=== PATIENT | female | born 1965 | race Caucasian/White ===

== ENCOUNTER 2022-08-07 23:14 | Inpatient (IN) | payer MEDICARE ==
[~2022-08-07] VITALS: Ht 170.2 cm; Wt 63.5 kg
[2022-08-07] MEDS ORDERED: FOLI1TAB94 PO (23:41)
[2022-08-07] MEDS ORDERED: LIDO30AD10 TD (23:41)
[2022-08-07] MEDS ORDERED: FLUC200T PO (23:41)
[2022-08-07] MEDS ORDERED: SUCR1ORA PO (23:41)
[2022-08-07] MEDS ORDERED: HYDR-500 PO (23:41)
[2022-08-07] MEDS ORDERED: ACET-2154 PO (23:41)
[2022-08-07] MEDS ORDERED: THIA100T74 PO (23:41)
[2022-08-07] MEDS ORDERED: MULT-213 PO (23:41)
[2022-08-07] MEDS ORDERED: PROC10TA13 PO (23:41)
[2022-08-07] MEDS ORDERED: MIRT-93 PO (23:41)
[2022-08-07] MEDS ORDERED: ONDA4TAB11 PO (23:41)
[2022-08-07] MEDS ORDERED: NICO-671 TD (23:41)
[2022-08-07] MEDS ORDERED: PANT40TA49 PO (23:41)
--- NOTE | 2022-08-07 23:59 | NUR ---
Patient placed in room 3 at this time.
--- NOTE | 2022-08-08 00:27 | NUR ---
Patient placed into room #3, informed of plan of care, placed on monitor. Patient is nonverbal at this time. No s/s of any distress noted at this time. will continue to monitor.
--- NOTE | 2022-08-08 00:39 | NUR ---
Patient talking now, alert oriented x3, pale in color, no respiratory distress, abd distended, firm with positive bowel sounds, BLE purplish discoloration with pitting edema to bilateral feet, BUE with scattered brusing noted. Patient given nausea bag, positioned for comfort, will continue to monitor.
[2022-08-08 01:32] LABS: HEMATOCRIT 27.7 % (31.2-41.9); MEAN CORPUSCULAR HEMOGLOBIN 34.5 uug (24.7-32.8); MEAN CORPUSCULAR VOLUME 100.3 fL (75.5-95.3); PLATELET COUNT (AUTO) 154 K/uL (179-408)
[2022-08-08 01:45] LABS: CREATININE 0.6 mg/dL (0.6-1.3); POTASSIUM 3.1 mmol/L (3.5-5.1)
--- NOTE | 2022-08-08 02:14 | NUR ---
Patient continues to rest, lab was at beside, no voiced c/o at this time.
[2022-08-08 02:15] LABS: MAGNESIUM 1.9 mg/dL (1.8-2.4)
[2022-08-08] MEDS ORDERED: POTASSIUM BICARBONATE/CIT AC 25 MEQ TABLET.EFF PO ONE (02:15)
[2022-08-08] MEDS ORDERED: POTASSIUM BICARBONATE/CIT AC 25 MEQ TABLET.EFF ONE (02:20)
[2022-08-08 02:23] LABS: BAND % (MANUAL) 2 % (0-10); LYMPHOCYTES % (MANUAL) 18 % (20-40)
[2022-08-08 02:24] LABS: MONOCYTES % (MANUAL) 12 % (2-10); NEUTROPHILS % (MANUAL) 68 % (42-75)
[2022-08-08 03:02] LABS: IRON, SERUM 68 ug/dL (50-175)
[2022-08-08] MEDS ORDERED: IOHEXOL 300MG/ML 100 ML INFUS..BTL ONE (03:26)
[2022-08-08] MEDS ORDERED: IV NORMAL SALINE 250 ML IV ONE (03:27)
[2022-08-08] MEDS ORDERED: SWABABLE VALVE TRANSFER SET EA MC ONE (03:27)
[2022-08-08] MEDS ORDERED: PROCHLORPERAZINE EDISYLATE 10 MG/2 ML VIAL IV ONE (03:30)
[2022-08-08] MEDS ORDERED: PROCHLORPERAZINE EDISYLATE 10 MG/2 ML VIAL ONE (03:34)
[2022-08-08] MEDS ORDERED: LIDOCAINE 2% (GLYDO= UROJET) 10 ML JELLY MM ONE (04:15)
[2022-08-08] MEDS ORDERED: MAGNESIUM SULFATE/D5W 100 ML IV SCH (04:15)
[2022-08-08] MEDS ORDERED: IV NS 1000 ML 1,000 ML IV ONE (04:15)
--- NOTE | 2022-08-08 04:21 | NUR ---
Patient has been to CT, returned awaiting MD review. #24g established in right thumb, medicated as per order for nausea.
--- NOTE | 2022-08-08 04:59 | NUR ---
#18fr NG tube inserted to right nare, approx. 500cc of thick tanish color secretions, repositioned for comfort, IVF started as per order.
--- NOTE | 2022-08-08 05:01 | NUR ---
Dr. Nunez on panel call with Adarsh Hurtado NP. Pending admission.
[2022-08-08] MEDS ORDERED: REMEDY ESSENTIAL ZINC PASTE 113 GM TP PRN (05:15)
[2022-08-08] MEDS ORDERED: ACETAMINOPHEN 325 MG TABLET PO PRN (05:15)
[2022-08-08] MEDS ORDERED: MAGNESIUM HYDROXIDE 30 ML LIQUID UDC PO PRN (05:15)
[2022-08-08] MEDS ORDERED: MAGNESIUM SULFATE/D5W 100 ML ONE (05:17)
--- NOTE | 2022-08-08 05:31 | NUR ---
patient aware she will be admitted to the hospital, belongings list completed.
--- NOTE | 2022-08-08 05:46 | NUR ---
Patient sleeping at this time, easy to arouse no change in primary assessment.
[2022-08-08] MEDS ORDERED: METOCLOPRAMIDE HCL 10 MG/2 ML VIAL IV ONE (06:00)
[2022-08-08] MEDS ORDERED: POTASSIUM CHLORIDE 50 ML ONE (06:13)
[2022-08-08] MEDS: POTASSIUM CHLORIDE 50 ML IV SCH ×4 (06:15→14:21)
[2022-08-08 06:32] LABS: HEMATOCRIT 24.5 % (31.2-41.9); MEAN CORPUSCULAR HEMOGLOBIN 34.3 uug (24.7-32.8); MEAN CORPUSCULAR VOLUME 100.3 fL (75.5-95.3); PLATELET COUNT (AUTO) 141 K/uL (179-408)
--- NOTE | 2022-08-08 06:33 | NUR ---
Report given to accepting nurse, patient remains stable for transport.
[2022-08-08 06:57] LABS: BILIRUBIN,TOTAL 0.7 mg/dL (0.2-1.0); CREATININE 0.5 mg/dL (0.6-1.3); MAGNESIUM 2.2 mg/dL (1.8-2.4); POTASSIUM 3.2 mmol/L (3.5-5.1); TOTAL PROTEIN, SERUM 4.8 g/dL (6.4-8.2)
[2022-08-08 07:01] LABS: THYROID STIMULATING HORMONE 1.636 mIU/mL (0.358-3.740)
[2022-08-08 07:30] VITALS: BP 96/61
--- NOTE | 2022-08-08 08:20 | NUR ---
received report from ryan charge nurse. pt is new admit from er. pt is on 5150 hold 72hrs hold in placed pt have a suicidal thought. 08/07 - 08/10. pt sleeping on bed. pale in color. in no acute distress. low intermittent suction in placed. pt is npo for now. SBO was seen on ct abdomen. sinus rhythm on the monitor.
--- NOTE | 2022-08-08 08:53 | NUR ---
[employer]IPPA consult requested for patient for homeless, substance abuse, and mental health resources. Patient is a 57 year old woman that was admitted to the hospital for abdominal pain and ileus. Patient is also on a 5150 for danger to self. Patient is alert and oriented X4 and presents with depressed mood and congruent affect. Patient states she does not have a primary contact and is currently living in her car that is parked in a parking lot. [employer]PA was unable to ascertain the location of the patient's car. Patient states she is currently not working and is receiving disability benefits. Patient states she has a history of alcohol abuse and PIPPA provided the patient with resources for [facility] [address] [facility] [address] ([phone]), [facility] [address] [facility] [address] ([phone]), and [facility] [address] [facility] [address] ([phone]). Patient appears unmotivated for treatment at this time. Patient denies a history of psychiatric diagnosis and states she is having suicidal ideation but does not have a plan. Patient denies homicidal ideation. [employer]PA provided the patient with the mental health resource for [facility] [address] [place] [address] ([phone]). [employer]PA will continue to follow up.
[2022-08-08] MEDS: CHOLECALCIFEROL 1,000 UNIT TABLET PO SCH (09:00)
[2022-08-08 09:03] VITALS: BP 98/64
--- NOTE | 2022-08-08 09:17 | NUR ---
Patient seen by Psychiatrist for evaluation, per doctor continue 1:1. Patient stated, "I feel like killing my self, I am think how to go about it". 1:1 at bedside at all time, encourage patient to express feels and thoughts with appropriate behavior. Emotional supprot provided. Fall and safety precautions implemented.
[2022-08-08 12:24] VITALS: BP 110/78
[2022-08-08] MEDS: IV D5/ 0.9% NACL 1,000 ML IV PRN ×2 (12:54→21:45)
[2022-08-08] MEDS ORDERED: DIATR MEGLU/DIATRIZOATE SODIUM 30 ML BOTTLE ONE (14:24)
--- NOTE | 2022-08-08 14:41 | NUR ---
Gastrografin administered. rad will come back in 20mins for xray bowel trough Addendum: 08/08/22 at 1443 by JOSH SARGENTREL RN intermittent suction clamp. will cont after the xray.
[2022-08-08 16:00] VITALS: BP 105/76
[2022-08-08 16:05] LABS: *BILIRUBIN,URIN NEGATIVE (NEGATIVE); *BLOOD, URINE 2+ (NEGATIVE); *CLARITY,URINE SLIGHTLY CLOUDY (CLEAR); *COLOR,URINE YELLOW (YELLOW); *KETONES,URINE TRACE (NEGATIVE); *UROBILINOGEN,URINE 0.2 E.U./dl (NORMAL); LEUKOCYTE ESTERASE ,URINE NEGATIVE (NEGATIVE); NITRITE, URINE POSITIVE (NEGATIVE); PH,URINE 5.5 (5.0-8.0); UGLUCOSE NEGATIVE (NEGATIVE)
[2022-08-08 16:42] LABS: BACTERIA,URINE MANY /HPF (NONE SEEN); WBC,URINE 0-3 /HPF (0-3)
[2022-08-08 17:02] LABS: SQUAMOUS EPITHELIAL CELL,UR MODERATE /HPF (NONE SEEN)
[2022-08-08] MEDS ORDERED: DEXAMETHASONE SOD PHOSPHATE 4 MG INJ ONE (17:15)
[2022-08-08] MEDS ORDERED: PROPOFOL 200 MG/20 ML BOTTLE ONE (17:15)
[2022-08-08] MEDS ORDERED: CEFAZOLIN 1 G VIAL ONE (17:15)
[2022-08-08] MEDS ORDERED: ONDANSETRON 4 MG/2 ML VIAL ONE (17:15)
--- NOTE | 2022-08-08 18:30 | NUR ---
pt aox3. still on 5150 hold. no acute distress noted. bedrest for now. on RA saturating 95-97. npo except med per md. sinus tachy on tele. ngt in placed patent, confirm positive placement, and flushed for low intermittent suction. pt was asked to stand up and sit on the edge of the bed but pt refused. pt was seen by hospitalist and psychiatrist. new orders was carried out. f/u with radiology for time of xray bowel follow trough. 1on1 sitter on placed pt is have suicidal thoughts. safety measure maintained. bed locked. all need attended. will endorsed to noc shift.
--- NOTE | 2022-08-08 19:30 | NUR ---
Received patient lying in bed. AAOx4. In no apparent distress. Denies any SOB. Complain of generalized pain. Will provide Morphine 1mg IV PRN per order. NGT to right nares intact and patent. Intermittnet suction off at this time as patient is having small bowel follow through procedure. Next x-ray to be done at 1999. 1:1 sitter on site. Continue to monitor.
[2022-08-08] MEDS: MORPHINE SULFATE 2 MG/1 ML DISP.SYRIN IV PRN (19:57)
[2022-08-08 20:00] VITALS: BP 105/72
[2022-08-08] MEDS: MIRTAZAPINE 15 MG TABLET PO SCH (20:32)
--- NOTE | 2022-08-08 22:10 | NUR ---
Radiology came for another abd. x-ray. Per X-ray tech Donald, will send last x-ray in for reading. Okay to start intermittent low suction now.
--- NOTE | 2022-08-08 22:30 | NUR ---
Telephone call from X-ray Tech Donald, stated that AIMEE Ugarte wanted to have another x-ray done at 0000. Stopped intermittent suctioning again at this time. Obtained 500ml of dark yellow secretions.
[2022-08-08] MEDS: LORAZEPAM 0.5 MG TABLET PO PRN (22:38)
[2022-08-09] VITALS: BP 121/83
[2022-08-09] MEDS: MORPHINE SULFATE 2 MG/1 ML DISP.SYRIN IV PRN ×5 (03:27→22:22)
--- NOTE | 2022-08-09 05:47 | NUR ---
1:1 sitter remains on site. No SI noted. Calm and cooperative. NGT remains intact and patent attached to intermittent slow suction. No N/V. Morphine 1mg via IV given for complain of pain and effective. Sinus tachy on tele with HR of 105/min. Needs attended to and met. Safety measure maintained.
[2022-08-09 06:00] VITALS: BP 116/82
[2022-08-09] MEDS: IV D5/ 0.9% NACL 1,000 ML IV PRN ×2 (06:19→14:20)
[2022-08-09 06:54] LABS: HEMATOCRIT 21.7 % (31.2-41.9); MEAN CORPUSCULAR HEMOGLOBIN 34.7 uug (24.7-32.8); MEAN CORPUSCULAR VOLUME 101.1 fL (75.5-95.3); PLATELET COUNT (AUTO) 181 K/uL (179-408)
[2022-08-09 07:13] LABS: CARBON DIOXIDE 28 mmol/L (21-32); CHLORIDE 102 mmol/L (98-107); CREATININE 0.4 mg/dL (0.6-1.3); GLUCOSE 98 mg/dL (74-106); MAGNESIUM 1.8 mg/dL (1.8-2.4); PHOSPHOROUS 3.1 mg/dL (2.5-4.9); POTASSIUM 3.5 mmol/L (3.5-5.1); UREA NITROGEN, BLOOD 11 mg/dL (7-18)
[2022-08-09 08:00] VITALS: BP 118/73
[2022-08-09 09:02] LABS: BAND % (MANUAL) 8 % (0-10); LYMPHOCYTES % (MANUAL) 29 % (20-40); MONOCYTES % (MANUAL) 13 % (2-10); NEUTROPHILS % (MANUAL) 50 % (42-75)
--- NOTE | 2022-08-09 09:09 | NUR ---
Continues on 1:1 sitter remains on site, for SI, patient stated, "I am not thinking of killing myself, I am thinking about drinking water". Calm and cooperative. NGT remains intact and patent attached to intermittent slow suction. No N/V. Morphine 1mg via IV given for complain of pain and effective. Sinus tachy on tele with HRT 108, emotional support provided, fall and safety precaution implemented.
[2022-08-09] MEDS: CHOLECALCIFEROL 1,000 UNIT TABLET PO SCH (09:49)
[2022-08-09 12:00] VITALS: BP 114/75
--- NOTE | 2022-08-09 13:46 | NUR ---
C/O pain 02/02, I V prn pain medication given as ordered.
--- NOTE | 2022-08-09 14:44 | NUR ---
imaging studies resulted. md made aware. keep npo and ngt suction per md.
[2022-08-09 16:00] VITALS: BP 134/78
--- NOTE | 2022-08-09 19:00 | NUR ---
Received patient with 1;1 sitter due diagnosis of SI, patient alert oriented, continent, NGT in intermittent low suction, tolerate well. Patient appears depressed low energy, cont to monitor.
--- NOTE | 2022-08-09 19:47 | NUR ---
pt was seen by dr. gonzalez. explain POC. pt verbalized understanding of POC. md ordered to clamp ngt suction q4hrs then record residual.
[2022-08-09 20:00] VITALS: BP 131/92
[2022-08-09] MEDS: MIRTAZAPINE 15 MG TABLET PO SCH (20:53)
--- NOTE | 2022-08-09 23:56 | NUR ---
Patient NGT been clamped since 1999, check residual obtained 100cc of yellow liquid, resume intermittent suction, tolerate well, cont to monitor.
[2022-08-10] VITALS: BP 126/78
[2022-08-10] MEDS: IV D5/ 0.9% NACL 1,000 ML IV PRN ×3 (00:37→21:30)
[2022-08-10] MEDS: MORPHINE SULFATE 2 MG/1 ML DISP.SYRIN IV PRN ×5 (02:35→21:30)
[2022-08-10 04:00] VITALS: BP 114/79
--- NOTE | 2022-08-10 05:29 | NUR ---
Patient alert oriented, no sob no chest pain, cont on pain management, medicated as order, 0445 clamped the NGT, there 200cc of gastric drainage on canister, yellowish color. cont on 1;1 sitter for safety. no bowel movement yet, cont to monitor.
[2022-08-10 07:22] LABS: CARBON DIOXIDE 30 mmol/L (21-32); CREATININE 0.3 mg/dL (0.6-1.3); GLUCOSE 111 mg/dL (74-106); MAGNESIUM 1.3 mg/dL (1.8-2.4); PHOSPHOROUS 2.8 mg/dL (2.5-4.9); UREA NITROGEN, BLOOD 8 mg/dL (7-18)
[2022-08-10 08:01] LABS: CHLORIDE 102 mmol/L (98-107)
[2022-08-10 08:06] LABS: POTASSIUM 2.7 mmol/L (3.5-5.1)
--- NOTE | 2022-08-10 08:10 | NUR ---
critical value report K-2.7. made aware. no new order.
[2022-08-10 08:15] LABS: HEMATOCRIT 22.4 % (31.2-41.9); MEAN CORPUSCULAR HEMOGLOBIN 34.5 uug (24.7-32.8); MEAN CORPUSCULAR VOLUME 100.6 fL (75.5-95.3); PLATELET COUNT (AUTO) 233 K/uL (179-408)
[2022-08-10 08:30] VITALS: BP 129/81
[2022-08-10] MEDS: CHOLECALCIFEROL 1,000 UNIT TABLET PO SCH ×2 (10:52→21:31)
[2022-08-10] MEDS: POTASSIUM CHLORIDE 50 ML IV SCH ×4 (12:13→15:56)
[2022-08-10] MEDS: MAGNESIUM SULFATE/D5W 100 ML IV SCH ×4 (13:40→16:59)
--- NOTE | 2022-08-10 15:00 | NUR ---
per Dr. Willoughby Clamp NGT and start clear liquid diet.
[2022-08-10 16:04] LABS: BAND % (MANUAL) 4 % (0-10); EOSINOPHILS % (MANUAL) 3 % (0-8); LYMPHOCYTES % (MANUAL) 19 % (20-40); MONOCYTES % (MANUAL) 11 % (2-10); NEUTROPHILS % (MANUAL) 63 % (42-75)
[2022-08-10 16:12] VITALS: BP 118/77
[2022-08-10 20:00] VITALS: BP 116/79
[2022-08-10] MEDS: MIRTAZAPINE 15 MG TABLET PO SCH (21:31)
[2022-08-10] MEDS: MUPIROCIN 2% OINT 22 GM TUBE NS SCH (21:39)
[2022-08-11] VITALS (7 sets, daily range): BP systolic 117–134; BP diastolic 69–81
[2022-08-11] MEDS: ONDANSETRON 4 MG/2 ML VIAL IV PRN (01:30)
[2022-08-11] MEDS: MORPHINE SULFATE 2 MG/1 ML DISP.SYRIN IV PRN ×6 (01:31→22:12)
[2022-08-11] MEDS: IV D5/ 0.9% NACL 1,000 ML IV PRN ×2 (06:01→21:26)
[2022-08-11 06:45] LABS: HEMATOCRIT 23.3 % (31.2-41.9); MEAN CORPUSCULAR HEMOGLOBIN 34.6 uug (24.7-32.8); MEAN CORPUSCULAR VOLUME 101.3 fL (75.5-95.3); PLATELET COUNT (AUTO) 262 K/uL (179-408)
[2022-08-11 07:06] LABS: CARBON DIOXIDE 30 mmol/L (21-32); CHLORIDE 98 mmol/L (98-107); CREATININE 0.3 mg/dL (0.6-1.3); GLUCOSE 102 mg/dL (74-106); MAGNESIUM 1.8 mg/dL (1.8-2.4); PHOSPHOROUS 2.3 mg/dL (2.5-4.9); UREA NITROGEN, BLOOD 7 mg/dL (7-18)
[2022-08-11 07:24] LABS: POTASSIUM 2.7 mmol/L (3.5-5.1)
--- NOTE | 2022-08-11 08:01 | NUR ---
Patient AAOX4, compliant with meds, denies SI/HI. No adverse reactions from medications. IV site is dry, patent, no redness and rashes observed. No sign of respiratory distress observed or reported. Will continue to monitor for safety.
[2022-08-11 08:59] LABS: BAND % (MANUAL) 3 % (0-10); LYMPHOCYTES % (MANUAL) 16 % (20-40); MONOCYTES % (MANUAL) 8 % (2-10); NEUTROPHILS % (MANUAL) 73 % (42-75)
[2022-08-11] MEDS: MUPIROCIN 2% OINT 22 GM TUBE NS SCH ×2 (09:49→21:26)
--- NOTE | 2022-08-11 10:00 | NUR ---
DR LONG HERE WITH NO NEW ORDERS AT THIS TIME PATIENT CONTINUES TO BE ON 5250 HOLD ORDERED DENIES SI OR HOMICIDAL IDEATION COMPLIANT WITH CARE AND MEDICATIONS IVF IN PROGRESS ORDERED NGT IN PLACE BUT CLAMPED PER DR HOWE NO NAUSEA OR VOMITING NOT IN DISTRESS AT THIS TIME.
--- NOTE | 2022-08-11 11:09 | NUR ---
POTASSIUM LEVEL IS 2.7 PHARMACY AWARE WITH NEW ORDERS AND NOTED.
[2022-08-11] MEDS: POTASSIUM CHLORIDE 50 ML IV SCH ×6 (11:35→17:05)
--- NOTE | 2022-08-11 14:02 | NUR ---
PATIENT SEEN AND EXAMINED BY DR EDWARDS WITH NEW ORDERS AND NOTED.
[2022-08-11] MEDS ORDERED: NEUTRA PHOS PACKET PO ONE (17:00)
--- NOTE | 2022-08-11 17:02 | NUR ---
Phosphate 2.3, new order for Neutra phos 2 packet given at 17:02 po, patient tolerated well.
--- NOTE | 2022-08-11 17:06 | NUR ---
NGT REMAINS CLAMPED ORDERED PATIENT SPITS SALIVA OFF AND ON NO EMESIS OR NAUSEA AT THIS TIME.
[2022-08-11] MEDS: MIRTAZAPINE 15 MG TABLET PO SCH (21:26)
[2022-08-12] VITALS: BP 110/72
[2022-08-12] MEDS: ONDANSETRON 4 MG/2 ML VIAL IV PRN ×2 (01:45→22:24)
[2022-08-12] MEDS: MORPHINE SULFATE 2 MG/1 ML DISP.SYRIN IV PRN ×6 (02:06→22:24)
[2022-08-12 03:45] VITALS: BP 121/76
[2022-08-12] MEDS: IV D5/ 0.9% NACL 1,000 ML IV PRN ×2 (06:40→20:52)
[2022-08-12 06:51] LABS: HEMATOCRIT 25.6 % (31.2-41.9); MEAN CORPUSCULAR HEMOGLOBIN 34.6 uug (24.7-32.8); MEAN CORPUSCULAR VOLUME 101.8 fL (75.5-95.3); PLATELET COUNT (AUTO) 248 K/uL (179-408)
[2022-08-12 07:09] LABS: CARBON DIOXIDE 29 mmol/L (21-32); CHLORIDE 99 mmol/L (98-107); CREATININE 0.4 mg/dL (0.6-1.3); GLUCOSE 101 mg/dL (74-106); MAGNESIUM 1.5 mg/dL (1.8-2.4); PHOSPHOROUS 2.3 mg/dL (2.5-4.9); POTASSIUM 3.8 mmol/L (3.5-5.1); UREA NITROGEN, BLOOD 8 mg/dL (7-18)
--- NOTE | 2022-08-12 07:56 | NUR ---
Patient is AAOX3, patient has been complaining about numbness in the abdomen, she has been very nauseated. Patient barely sleep during the night. Note has been sent to ADMINISTRATIVE TECH per patient request. Requested the morphine dosage to be increase. Patient also requested to remove the NGT, she has been complaining about chest pain due to the tube. She still have a sitter by the bedside.Will continue to monitor patient for safety.
[2022-08-12 08:00] VITALS: BP 139/93
--- NOTE | 2022-08-12 08:30 | NUR ---
DR RIOS PSYCH HERE AND SEEN PATIENT WITH NO NEW ORDERS AT THIS TIME.
[2022-08-12] MEDS: MUPIROCIN 2% OINT 22 GM TUBE NS SCH ×2 (08:38→20:47)
[2022-08-12] MEDS: CHOLECALCIFEROL 1,000 UNIT TABLET PO SCH (08:46)
--- NOTE | 2022-08-12 09:36 | NUR ---
MAGNESSIUM LEVEL IS 1.5 WITH NEW REPLACEMENT ORDER AND NOTED.
[2022-08-12] MEDS: MAGNESIUM SULFATE/D5W 100 ML IV SCH ×2 (09:46→11:32)
[2022-08-12 11:15] VITALS: BP 139/93
[2022-08-12] MEDS: PROTEIN SUPPLEMENT (PROSTAT) 30 ML LIQUID PO SCH ×2 (12:49→16:21)
--- NOTE | 2022-08-12 13:00 | NUR ---
DR EDWARDS HERE SEEN PATIENT AND AWARE THAT RAFAELA DID HAVE A SMALL EMESIS SOMETIME MANAGER SWITCH I DID NOT SEE IT UNTIL MUCH LATER TOLERATING HER THAT I WILL NOTIFY HER DOCTOR BECAUSE IF SHE IS HAVING EMESIS TI MEANS THAT SHE IS NOT TOLERATING HER CLEAR LIQUIDS ORDERED.
--- NOTE | 2022-08-12 14:45 | NUR ---
DR EDWARDS HERE AND SEEN PATIENT AND STATED THAT PATIENT SHOULD BE ON NOTHING BY MOUTH PATIENT AWARE.
[2022-08-12] MEDS ORDERED: SODIUM PHOSPHATE MM 15 MMOL in IV NORMAL SALINE 250 ML IV ONE (16:00)
--- NOTE | 2022-08-12 16:18 | NUR ---
CALL RECEIVED FROM DR RIOS WITH ORDER TO DISCONTINUE 5250 HOLD AT THIS TIME AND NOTED.
[2022-08-12 16:29] VITALS: BP 126/81
--- NOTE | 2022-08-12 18:08 | NUR ---
DR CARLEY ENRIQUEZ HERE TO SEE PATIENT WITH NO NEW ORDERS SPOKE WITH THE PATIENT AT LENGTH WITH PROBABILITY OF SURGERY BUT NO ORDERS YET.
--- NOTE | 2022-08-12 19:45 | NUR ---
rounds made patient in bed AAOX4.MAEX4.patient asked for water informed that she is NPO and that she has a right nare NGT to LIWS (as endorsed from the day shift RN patient ngt was clamp she was started on clear liquids but patient vomited so she is now NPO.
[2022-08-12 20:00] VITALS: BP 130/80
[2022-08-12] MEDS: MIRTAZAPINE 15 MG TABLET PO SCH (20:47)
--- NOTE | 2022-08-12 22:24 | NUR ---
pain medication and Zofran given as per patient request . see emar .
[2022-08-13] VITALS (8 sets, daily range): BP systolic 123–142; BP diastolic 78–99
[2022-08-13] MEDS: MORPHINE SULFATE 2 MG/1 ML DISP.SYRIN IV PRN ×5 (02:15→21:32)
[2022-08-13] MEDS: ONDANSETRON 4 MG/2 ML VIAL IV PRN (06:31)
[2022-08-13] MEDS: IV D5/ 0.9% NACL 1,000 ML IV PRN ×2 (07:00→21:23)
[2022-08-13 08:23] LABS: HEMATOCRIT 24.2 % (31.2-41.9); MEAN CORPUSCULAR HEMOGLOBIN 35.4 uug (24.7-32.8); MEAN CORPUSCULAR VOLUME 101.8 fL (75.5-95.3); PLATELET COUNT (AUTO) 217 K/uL (179-408)
[2022-08-13] MEDS: PROTEIN SUPPLEMENT (PROSTAT) 30 ML LIQUID PO SCH ×3 (08:24→16:53)
[2022-08-13] MEDS: CHOLECALCIFEROL 1,000 UNIT TABLET PO SCH (08:25)
[2022-08-13] MEDS: MUPIROCIN 2% OINT 22 GM TUBE NS SCH ×2 (08:26→20:55)
[2022-08-13 08:50] LABS: CARBON DIOXIDE 29 mmol/L (21-32); CHLORIDE 101 mmol/L (98-107); CREATININE 0.3 mg/dL (0.6-1.3); GLUCOSE 101 mg/dL (74-106); MAGNESIUM 1.8 mg/dL (1.8-2.4); PHOSPHOROUS 2.6 mg/dL (2.5-4.9); POTASSIUM 3.4 mmol/L (3.5-5.1); UREA NITROGEN, BLOOD 10 mg/dL (7-18)
[2022-08-13] MEDS: POTASSIUM CHLORIDE 50 ML IV SCH ×2 (09:33→10:39)
--- NOTE | 2022-08-13 14:53 | NUR ---
Pt. is alert and oriented x4. Able to make the need known. Call light within reach. Bed in low position. All need attended and met. No acute distress noted. Seen by Dr. Willoughby for laparoscopic versus exploration, possible bowel resection, possible ostomy, possible any other indicated procedure. Kept the pt. in NPO status. Will keep monitoring the patient.
--- NOTE | 2022-08-13 16:26 | NUR ---
Pt. left the unit to OR for Surgery of Laparoscopic versus open exploration, possible bowel resection, possible ostomy, Possible any other indicated procedure. Pt. noted to be stable upon the transferring.
[2022-08-13] MEDS ORDERED: FENTANYL CITRATE 100 MCG/2 ML AMPUL ONE (16:38)
[2022-08-13] MEDS ORDERED: ROCURONIUM BROMIDE 50 MG/5 ML VIAL ONE (16:38)
[2022-08-13] MEDS ORDERED: MIDAZOLAM HCL 2 MG/2 ML VIAL ONE (16:38)
[2022-08-13] MEDS ORDERED: BUPIVACAINE/EPI PF 0.5% 10 ML VIAL ONE ×2 (18:26→18:27)
--- NOTE | 2022-08-13 20:10 | NUR ---
Pt is s/p Laparoscopic Exploration,Liver Wedge biopsy. Pt is on 3L n/c with saturation of 96%. NGT present to LCS with dark green output. Pt denies pain or SOB at this time. 3 steri strips present on abdomen. She is using the incentive spirometer but needs encouragement. IVF is infusing as ordered. Will continue pts plan of care.
[2022-08-13] MEDS: MIRTAZAPINE 15 MG TABLET PO SCH (20:53)
--- NOTE | 2022-08-13 22:00 | NUR ---
Pt is complaining that she had not had any water to drink for days, I explained to patient taht based on her condition,it is safer to follow doctors orders for npo since there may be complications from eating while her bowels are healing. Pt states "well there", and pulled the NG tube out and refuse to have it replaced. I informed Dr Quijano of this event as well for more pain mgt. Pts. pain was controlled with morphine overnight. She stated that it helps however not for long and the dosage needs to be adjusted per patient.
[2022-08-13] MEDS ORDERED: MORPHINE SULFATE 2 MG/1 ML DISP.SYRIN IV ONE (23:45)
[2022-08-14 04:00] VITALS: BP 140/78
[2022-08-14] MEDS ORDERED: PIPERACILLIN/TAZOBACTAM/D5W 50 ML IV ONE (05:24)
[2022-08-14] MEDS: IV D5/ 0.9% NACL 1,000 ML IV PRN ×2 (05:52→18:54)
[2022-08-14] MEDS: MORPHINE SULFATE 2 MG/1 ML DISP.SYRIN IV PRN (06:01)
--- NOTE | 2022-08-14 07:34 | NUR ---
Report given to David to continue pts plan of care.
[2022-08-14] MEDS: MUPIROCIN 2% OINT 22 GM TUBE NS SCH ×2 (08:37→21:19)
[2022-08-14] MEDS: PROTEIN SUPPLEMENT (PROSTAT) 30 ML LIQUID PO SCH ×3 (08:38→16:23)
[2022-08-14] MEDS: CHOLECALCIFEROL 1,000 UNIT TABLET PO SCH (08:38)
--- NOTE | 2022-08-14 09:17 | NUR ---
Notified Dr. Karen Hickman about the pt. removed NGT last night and pt. refused the nurse to place the NGT back. Pt. stated "No need for NGT replacement". No new order received.
[2022-08-14 11:51] VITALS: BP 137/87
[2022-08-14] MEDS: CEFTRIAXONE 1 G in IV DEXTROSE 5% 50 ML IV SCH (12:35)
[2022-08-14 16:03] VITALS: BP 133/80
--- NOTE | 2022-08-14 16:26 | NUR ---
Pt. has been stable during the shift. No c/o pain. All need attended and met. Call light within reach. Bed in low position. Compliance with the care given. Will keep monitoring the patient.
[2022-08-14 20:00] VITALS: BP 135/81
[2022-08-14] MEDS: HYDROCODONE/APAP 5-325MG TABLET PO PRN (20:38)
[2022-08-14] MEDS: MIRTAZAPINE 15 MG TABLET PO SCH (21:11)
[2022-08-15] MEDS: LORAZEPAM 0.5 MG TABLET PO PRN (01:45)
[2022-08-15 04:00] VITALS: BP 125/78
[2022-08-15] MEDS: IV D5/ 0.9% NACL 1,000 ML IV PRN (04:17)
[2022-08-15] MEDS: CHOLECALCIFEROL 1,000 UNIT TABLET PO SCH (08:24)
[2022-08-15] MEDS: MUPIROCIN 2% OINT 22 GM TUBE NS SCH (08:25)
[2022-08-15] MEDS: PROTEIN SUPPLEMENT (PROSTAT) 30 ML LIQUID PO SCH ×2 (08:26→12:46)
[2022-08-15 11:54] VITALS: BP 142/92
[2022-08-15] MEDS: CEFTRIAXONE 1 G in IV DEXTROSE 5% 50 ML IV SCH (12:45)
[2022-08-15] MEDS: HYDROCODONE/APAP 5-325MG TABLET PO PRN (12:46)
[2022-08-15] MEDS ORDERED: CHOL100062 PO (13:49)
[2022-08-15] MEDS ORDERED: CIPR-262 PO (13:49)
[2022-08-15] MEDS ORDERED: LORA0.5T48 PO (13:49)
[2022-08-15] MEDS ORDERED: MIRT-93 PO (13:49)
[2022-08-15 15:53] VITALS: BP 143/90
--- NOTE | 2022-08-15 16:47 | NUR ---
Pt. discharged to [facility]. All personal belonging returned to the patient. IV line removed. Pt. was stable upon the discharge and no C/O pain. All necessary document signed. Nurse called [facility] and gave report to Cristobal.
== END 2022-08-15 16:45 | DRG 356 ==
LOC: ER 23:21 → TELE3 08-08 05:02 → MEDSURG3 08-09 09:55
PROVIDERS: ADMIT Nurse Practitioner Family; ATTEND Student in an Organized Health Care Education/Training Program
PROC: 0D9670Z Drainage of Stomach with Drainage Device, Via Natural or Artificial Opening (ICD-10-PCS; 2022-08-08)
PROC: 05HA33Z Insertion of Infusion Device into Left Brachial Vein, Percutaneous Approach (ICD-10-PCS; 2022-08-08)
PROC: 0WJG4ZZ Inspection of Peritoneal Cavity, Percutaneous Endoscopic Approach (ICD-10-PCS; principal; 2022-08-13)
PROC: 0FB04ZX Excision of Liver, Percutaneous Endoscopic Approach, Diagnostic (ICD-10-PCS; 2022-08-13)
DX: K56.0 Paralytic ileus (principal); E43 Unspecified severe protein-calorie malnutrition; F33.2 Major depressive disorder, recurrent severe without psychotic features; R45.851 Suicidal ideations; N39.0 Urinary tract infection, site not specified; J90 Pleural effusion, not elsewhere classified; E87.1 Hypo-osmolality and hyponatremia; Z59.02 Unsheltered homelessness; E87.6 Hypokalemia; Z91.51 Personal history of suicidal behavior; B96.89 Other specified bacterial agents as the cause of diseases classified elsewhere; K52.9 Noninfective gastroenteritis and colitis, unspecified; F41.9 Anxiety disorder, unspecified; Z66 Do not resuscitate; Z86.718 Personal history of other venous thrombosis and embolism; F10.10 Alcohol abuse, uncomplicated; Z87.19 Personal history of other diseases of the digestive system; F17.210 Nicotine dependence, cigarettes, uncomplicated; G89.29 Other chronic pain; M25.511 Pain in right shoulder; Z20.822 Contact with and (suspected) exposure to COVID-19; Z88.0 Allergy status to penicillin; Z88.6 Allergy status to analgesic agent; D64.9 Anemia, unspecified; K76.9 Liver disease, unspecified
CPT/HCPCS: 36415; 70030-TC; 71045; 74018; 74250; 82747; 83550; 83735; 84100; 84443; 85014; 85025; 88313-TC; 93005; 93307; A4649; A4663; G0378; J0690; J0696; J0780; J1100; J2250; J2270; J2405; J2543; J3010; J3475; J3480; J3490; J7040; J7042; Q9963; Q9967